=== PATIENT | male | born 1940 | race Caucasian/White ===

== ENCOUNTER 2022-12-29 10:00 | Outpatient (CLI) | payer MEDICARE, BC, SELFPAY | END 2022-12-29 10:01 | disposition home or self-care (01) | LOC: NFLDREF 12-30 07:35 | PROVIDERS: PCP Internal Medicine; Referring Provider Internal Medicine; Visit Provider Internal Medicine | DX: I10 Essential (primary) hypertension (principal); E11.9 Type 2 diabetes mellitus without complications; Z13.9 Encounter for screening, unspecified; Z12.5 Encounter for screening for malignant neoplasm of prostate | CPT/HCPCS: 80053; 80061; 82043; 82570; 84153 ==

== ENCOUNTER 2023-06-28 09:59 | Outpatient (CLI) | payer MEDICARE, BC, SELFPAY | END 2023-06-28 10:00 | disposition home or self-care (01) | PROVIDERS: PCP Internal Medicine; Referring Provider Internal Medicine; Visit Provider Internal Medicine | DX: E11.311 Type 2 diabetes mellitus with unspecified diabetic retinopathy with macular edema (principal); I10 Essential (primary) hypertension | CPT/HCPCS: 80053; 80061; 82043; 82570 ==

== ENCOUNTER 2023-08-08 08:46 | Day surgery (SDC) | payer MEDICARE, BC, SELFPAY ==
--- NOTE | 2023-08-08 10:18 | SUR.PREOP ---
Patient was cancelled due to not having a ride home after receiving sedation - per anesthesia, patient is not able to take a taxi home. Patient advocate was involved in this case. Patient informed that someone would be calling him tomorrow regarding rescheduling when he has a family/friend that would be able to bring him to and from the procedure. Patients questions were answered to the best of our ability, patient stated he understood everything that he was being told.
== END 2023-08-08 12:00 | disposition home or self-care (01) ==
LOC: OR 08:46
PROVIDERS: PCP Internal Medicine; Visit Provider Ophthalmology
DX: H26.9 Unspecified cataract (principal); Z53.29 Procedure and treatment not carried out because of patient's decision for other reasons
CPT/HCPCS: A9270

== ENCOUNTER 2024-02-11 10:19 | Outpatient (CLI) | payer MEDICARE, BC, SELFPAY ==
--- OUTSIDE RECORDS SUMMARY | 2024-02-29 08:34 | XMS_ITS | Clinical Summary ---
Author Organization [employer] [facility] Address [place], [place] [address] Care Team Providers Care Assistant Auditor Name Role Phone Ralph Oneal MD Primary Care Provider Allergies No known active allergies Medications Medication Sig Dispensed Refills Start Date End Date Status aspirin 81 mg tablet Take 1 tablet by mouth once daily with a meal. 0 05/28/2013 Active metFORMIN (GLUCOPHAGE) 500 mg tablet Take 1 tablet by mouth 2 times daily with meals. 0 05/28/2013 Active Social History Tobacco Use Types Packs/Day Years Used Date Smoking Tobacco: Never Alcohol Use Standard Drinks/Week Comments Not Asked 0 (1 standard drink = 0.6 oz pur e alcohol) Sex and Gender Information Value Date Recorded Sex Assigned at Not on file Gender Identity Not on file Sexual Orientation Not on file Obstetrics History Last Filed Vital Signs Vital Sign Reading Time Taken Comments Blood Pressure 109/65 06/18/2013 10:39 AM CDT Pulse 93 06/18/2013 10:39 AM CDT Temperature - - Respiratory Rate - - Oxygen Saturation - - Inhaled Oxygen Concentration - - Weight 76.7 kg (169 lb) 06/18/2013 10:39 AM CDT Height - - Body Mass Index - - Plan of Treatment Health Maintenance Due Date Last Done Comments Tdap 1951 Depression screening for age 12+ 1954 BMI (ht and wt on same day) for age 18+ 1960 Tetanus booster 1962 Zoster (shingles) series for age 50+ (1 of 2) 06/21/19 92 Pneumococcal series for age 65+ (1 of 1 - PCV) 007 COVID-19 vaccine series ( - 2022-24 season) 3 Influenza for age 65+ 05/25/2024 Care Teams Assistant Auditor Relationship Specialty Start Date End Date Ralph Oneal MD [address] [place] [id number] PCP - General 05/28/13
== END 2024-02-11 10:20 | disposition home or self-care (01) ==
LOC: NFLDREF 02-29 08:32
PROVIDERS: PCP Internal Medicine; Referring Provider Internal Medicine; Visit Provider Internal Medicine
DX: E11.311 Type 2 diabetes mellitus with unspecified diabetic retinopathy with macular edema (principal); E11.9 Type 2 diabetes mellitus without complications; I10 Essential (primary) hypertension; E78.5 Hyperlipidemia, unspecified; Z13.9 Encounter for screening, unspecified
CPT/HCPCS: 80053; 80061; 82043; 82570; G0103

== ENCOUNTER 2024-10-21 10:50 | Outpatient (CLI) | payer MEDICARE, BC, SELFPAY | END 2024-10-21 10:51 | disposition home or self-care (01) | LOC: NFLDREF 10-22 06:43 | PROVIDERS: PCP Internal Medicine; Referring Provider Internal Medicine; Visit Provider Internal Medicine | DX: E11.9 Type 2 diabetes mellitus without complications (principal); I10 Essential (primary) hypertension; Z79.84 Long term (current) use of oral hypoglycemic drugs; Z13.220 Encounter for screening for lipoid disorders; Z12.5 Encounter for screening for malignant neoplasm of prostate | CPT/HCPCS: 80053; 80061; 82043; 82570; G0103 ==